=== PATIENT | male | born 2000 | race American Indian/Alaskan Native ===

== ENCOUNTER 2019-04-14 21:54 | Emergency (ER) | payer SELFPAY ==
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
--- NOTE | 2019-04-14 22:52 | XRay Report ---
EXAMINATION: Right hand radiograph, 3 views, 04/14/2019 CLINICAL INFORMATION: Right hand pain after fall COMPARISON: None. FINDINGS: There is no evidence of acute fracture or significant soft tissue swelling of the right ellis d. Signer Name: Teresa Woo MD Signed: 04/14/2019 10:48 PM Workstation Name: [id number]
[2019-04-15] MEDS ORDERED: IBUPROFEN 600 MG TAB PO ONE (00:03)
[2019-04-15] MEDS ORDERED: SULFAMETHOXAZOLE/TRIMETHOPRIM 800/160MG DS TAB PO ONE (00:03)
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
[2019-04-15 00:39] VITALS: BP 118/64
== END 2019-04-15 00:38 | disposition home or self-care (01) ==
LOC: ED 21:54
DX: S60.011A Contusion of right thumb without damage to nail, initial encounter (principal); F25.0 Schizoaffective disorder, bipolar type; F90.9 Attention-deficit hyperactivity disorder, unspecified type; F17.200 Nicotine dependence, unspecified, uncomplicated; F12.10 Cannabis abuse, uncomplicated; Z79.899 Other long term (current) drug therapy; V18.9XXA Unspecified pedal cyclist injured in noncollision transport accident in traffic accident, initial encounter; Y93.89 Activity, other specified; Y92.410 Unspecified street and highway as the place of occurrence of the external cause; Y99.8 Other external cause status

== ENCOUNTER 2021-05-13 02:30 | Emergency (ER) | payer OTHER ==
[2021-05-13 04:36] VITALS: BP 135/80
[2021-05-13 05:02] LABS: Basophils # (Auto) 0.1 K/mm3 (0.0-0.1); Basophils % (Auto) 0.4 % (0.0-1.8); Eosinophils % (Auto) 0.3 % (0.0-4.3); Hematocrit 46.2 % (35.5-45.6); Hemoglobin 14.9 gm/dl (11.8-15.2); Lymphocytes # (Auto) 2.1 K/mm3 (1.2-5.4); Lymphocytes % (Auto) 17.9 % (13.4-35.0); Mean Corpuscular HGB Conc 32 % (32-34); Mean Corpuscular Volume 91 fl (84-94); Monocytes # (Auto) 1.1 K/mm3 (0.0-0.8); Monocytes % (Auto) 9.3 % (0.0-7.3); Platelet Count 271 K/mm3 (140-440); Red Blood Count 5.09 M/mm3 (3.65-5.03); Red Cell Distribution Width 13.1 % (13.2-15.2)
[2021-05-13 05:13] LABS: INR 1.01 (0.87-1.13)
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
--- NOTE | 2021-05-13 05:18 | XRay Report ---
RIGHT HAND 2 VIEWS INDICATION / CLINICAL INFORMATION: Finger deformity. COMPARISON: None available. FINDINGS: BONES / JOINT(S): There is posterior dislocation of the middle phalanx of the index finger relative t o the proximal phalanx, best seen on the lateral view. There is a small ossific density along the ant erior aspect of the joint on the lateral view worrisome for an avulsion or chip fracture. There is a tiny nonspecific erosion involving the base of the proximal phalanx of the middle finger laterally. SOFT TISSUES: There is moderate soft tissue swelling involving the index finger, centered at the PIP joint. ADDITIONAL FINDINGS: None. IMPRESSION: Posterior dislocation at the PIP joint of the index finger. Small associated avulsion or chip fracture along the volar margin of the joint. Signer Name: Kareem Paz MD Signed: 05/13/2021 5:13 AM Workstation Name: [id number]
[2021-05-13 05:20] LABS: Alanine Aminotransferase 14 units/L (7-56); BUN/Creatinine Ratio 14; Blood Urea Nitrogen 13 mg/dL (9-20); Calcium 9.5 mg/dL (8.4-10.2); Hemolysis Index 6
[2021-05-13 05:24] LABS: Bilirubin,Direct < 0.2 mg/dL (0-0.2)
[2021-05-13] MEDS ORDERED: HYDROmorphone 1 MG/1 ML INJ IV ONE (05:46)
[2021-05-13] MEDS ORDERED: ONDANSETRON 4 MG/2 ML INJ IV ONE (05:46)
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
[2021-05-13] MEDS ORDERED: BUPIVACAINE/PF (0.25%) 2.5 MG/ML 30 ML VIAL INFILTRATI ONE (06:09)
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
[2021-05-13] MEDS ORDERED: BUPIVACAINE/PF (0.5%) 5 MG/1 ML 10 ML VIAL INFILTRATI ONE (06:30)
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
== END 2021-05-13 08:00 ==
LOC: EEVIPCON 02:30 → ED 02:30
DX: S02.609A Fracture of mandible, unspecified, initial encounter for closed fracture (principal); S01.81XA Laceration without foreign body of other part of head, initial encounter; S09.90XA Unspecified injury of head, initial encounter; S63.259D Unspecified dislocation of unspecified finger, subsequent encounter; Y08.89XA Assault by other specified means, initial encounter; Y93.89 Activity, other specified; Y92.89 Other specified places as the place of occurrence of the external cause; Y99.8 Other external cause status
CPT/HCPCS: 12011; 26770; 36415; 70450; 70486; 71045; 73120; 80048; 80076; 85025; 85610; 85730; 96374; 96375; 99285; J1170; J2405; J3490